=== PATIENT | male | born 1955 | race Caucasian/White ===

== ENCOUNTER 2019-12-20 05:00 | Emergency (ER) | payer SELFPAY ==
[2019-12-20] MEDS ORDERED: NORMAL SALINE 1000 ML 1,000 ML IV ONE ×2 (05:19→06:06)
[2019-12-20] MEDS ORDERED: DIPH/PERTUSS(ACELL)/TETANUS VAC/PF 0.5 ML SYR (>=10YO) IM ONE (05:21)
[2019-12-20 05:40] LABS: ABSOLUTE LYMPHOCYTES (AUTO) 0.8 10^3/uL (0.5-4.7); ABSOLUTE MONOCYTES (AUTO) 0.3 10^3/uL (0.1-1.4); ABSOLUTE NEUT (AUTO) 1.8 10^3/uL (1.7-8.2); BASOPHILS % (AUTO) 0.7 % (0-2); EOSINOPHILS % (AUTO) 1.3 % (0-6); HEMOGLOBIN 12.9 g/dL (13.5-17.0); LYMPHOCYTES % (AUTO) 26.1 % (13-45); MEAN CORPUSCULAR HEMOGLOBIN 32.8 pg (27.0-33.4); MEAN CORPUSCULAR HGB CONC 34.9 g/dL (32.0-36.0); MEAN CORPUSCULAR VOLUME 94 fl (80-97); MONOCYTES % (AUTO) 10.4 % (3-13); RED BLOOD COUNT 3.94 10^6/uL (4.35-5.55); RED CELL DISTRIBUTION WIDTH 14.5 % (11.5-14.0); SEGMENTED NEUTROPHILS % (AUTO) 61.5 % (42-78); TOTAL CELLS COUNTED % (AUTO) 100 %; WHITE BLOOD COUNT 2.9 10^3/uL (4.0-10.5)
--- NOTE | 2019-12-20 05:41 | ER Document Report ---
ED Medical Screen (RME) - General TRAVEL OUTSIDE OF THE [place] IN LAST 30 DAYS: No - Related Data Smoking: Non-smoker Frequency of alcohol use: None Drug Abuse: None <AMAIRANI HOPKINS - Last Filed: 12/20/19 05:36> - General Mode of Arrival: Medic Information source: Patient <GREGORY VALENCIA - Last Filed: 12/20/19 09:17> - General Chief Complaint: Fall Stated Complaint: FALL,HEAD INJURY - [facility] Notes: 12/20/19 05:36 Patient is a 64-year-old male who presents to the emergency department for evaluation after a syncopal episode. He states he was laying down, got up suddenly to talk to someone, and had a syncopal episode. He did strike his head. He was evidently unconscious for about 10 seconds. No seizure-like activity. The patient does not really remember falling. He has pain in the back of his head that he rates a 3 out of 5. He is unsure of his last tetanus shot. (AMAIRANI HOPKINS) 12/20/19 08:03 Patient's pain is constant. It is a mild throbbing pain. Nothing makes it b [place] or worse. It does not radiate. (GREGORY VALENCIA) - Related Data Allergies/Adverse Reactions: Penicillins Allergy (Verified 12/20/19 05:10) zolpidem [From Ambien] Allergy (Verified 12/20/19 05:10) Past Medical History - General Information source: Patient - Social History Drug Abuse: None Psychiatric Medical History: Reports: Hx Bipolar Disorder Past Surgical History: Reports: Hx Neurologic Surgery <AMAIRANI HOPKINS - Last Filed: 12/20/19 05:36> - General Information source: Patient - Social History Cigarette use (# per day): No - Says he used to smoke many years ago but does not currently smoke Frequency of alcohol use: None <GREGORY VALENCIA - Last Filed: 12/20/19 09:17> - Medical History Notes: History of traumatic brain injury (AMAIRANI HOPKINS) Review of Systems - Review of Systems Constitutional: denies: Chills, Fever Cardiovascular: denies: Chest pain, Palpitations Respiratory: denies: Cough, Short of breath -: Yes All other systems reviewed and negative <GREGORY VALENCIA - Last Filed: 12/20/19 09:17> Physical Exam <AMAIRANI HOPKINS - Last Filed: 12/20/19 05:36> - Vital signs Interpretation: Normal, Other - Patient has positive orthostasis - General General appearance: Appears well, Alert - HEENT Head: Normocephalic, Other - Patient has an occipital abrasion/hematoma that is mildly tender to palpation. No active bleeding. Eyes: Normal Pupils: PERRL Mucous membranes: Moist - Respiratory Respiratory status: No respiratory distress Chest status: Nontender Breath sounds: Normal Chest palpation: Normal - Cardiovascular Rhythm: Regular Heart sounds: Normal auscultation Murmur: No - Abdominal Inspection: Normal Distension: No distension Bowel sounds: Normal Tenderness: Nontender Organomegaly: No organomegaly - Back Back: Normal, Nontender - Extremities General upper extremity: Normal inspection, Nontender, Normal color, Normal ROM, Normal temperature General lower extremity: Normal inspection, Nontender, Normal color, Normal ROM, Normal temperature, Normal weight bearing. No: Aniceto's sign - Neurological Neuro grossly intact: Yes Cognition: Normal Orientation: AAOx4 [place] Coma Scale Eye Opening: Spontaneous [place] Coma Scale Verbal: Oriented [place] Coma Scale Motor: Obeys Commands [place] Coma Scale Total: 15 Speech: Normal Motor strength normal: LUE, RUE, LLE, RLE Sensory: Normal - Psychological Associated symptoms: Normal affect, Normal mood - Skin Skin Temperature: Warm Skin Moisture: Dry Skin Color: Normal <GREGORY VALENCIA - Last Filed: 12/20/19 09:17> - Vital signs Vitals: Pulse Ox 100 12/20/19 05:02 - Notes Notes: This is a 64-year-old male who appears his stated age in no acute distress. Head is normocephalic. He has a 4 x 4 centimeter area of abrasion on the parieto-occipital scalp without active bleeding or clear foreign body. Examination of the cervical spine is no midline tenderness or step-off, no paraspinal musculature tenderness appreciated. Patient is awake and alert, cooperative examiner. Moves all 4 extremity spontaneously. I have greeted and performed a rapid initial assessment of this patient. A comprehensive ED assessment and evaluation of the patient, analysis of test results and completion of medical decision making process will be conducted by additional ED providers. (AMAIRANI HOPKINS) Course - Laboratory Result Diagrams: 12/20/19 05:22 12/20/19 05:22 <AMAIRANI HOPKINS - Last Filed: 12/20/19 05:36> - Laboratory Result Diagrams: 12/20/19 05:22 12/20/19 05:22 - Diagnostic Test Radiology reviewed: Image reviewed, Reports reviewed - EKG Interpretation by Me EKG shows normal: Sinus rhythm Rate: Bradycardia - 56 Rhythm: NSR [place]/QRS: No: Right axis deviation, Left axis deviation <GREGORY VALENCIA - Last Filed: 12/20/19 09:17> - Re-evaluation Re-evalutation: 12/20/19 09:14 Patient had an episode of syncope this morning. CT is unremarkable he has a unremarkable neurological exam. He states he feels better now. He has ambulated about the ED without problem or symptom. His orthostatics are now normal. Patient appears much better after 2 L of fluid. I believe dehydration was the main problem patient had this morning. (GREGORY VALENCIA) - Vital Signs Vital signs: Temp Pulse Resp BP Pulse Ox 98.0 F 52 L 11 L 133/78 H 99 12/20/19 05:15 12/20/19 09:03 12/20/19 05:49 12/20/19 09:03 12/20/19 05:49 - Laboratory Laboratory results interpreted by me: 12/20/19 12/20/19 05:22 05:22 WBC 2.9 L RBC 3.94 L Hgb 12.9 L Hct 37.0 L RDW 14.5 H Plt Count 61 L AST 96 H ALT 84 H Total Protein 6.2 L Albumin 3.4 L Doctor's Discharge <AMAIRANI HOPKINS - Last Filed: 12/20/19 05:36> <GREGORY VALENCIA - Last Filed: 12/20/19 09:17> - Discharge Clinical Impression: Syncope and collapse, Thrombocytopenia Closed head injury Qualifiers: Encounter type: initial encounter Qualified Code(s): S09.90XA - Unspecified injury of head, initial encounter Hematoma of occipital surface of head Qualifiers: Encounter type: initial encounter Qualified Code(s): S00.83XA - Contusion of other part of head, initial encounter Leukopenia Qualifiers: Leukopenia type: unspecified Qualified Code(s): D72.819 - Decreased white blood cell count, unspecified Condition: Stable Disposition: HOME, SELF-CARE Instructions: Head Injury Precautions ([facility]), Syncopal Episode ([facility]) Additional Instructions: Please have a repeat CBC in two to three days Referrals: [facility] [Provider Group] - Follow up in 3-5 days
[2019-12-20 05:55] LABS: ALBUMIN 3.4 g/dL (3.5-5.0); ALKALINE PHOSPHATASE 83 U/L (38-126); ASPARTATE AMINO TRANSFERASE 96 U/L (17-59); BILIRUBIN,TOTAL 0.4 mg/dL (0.2-1.3); BLOOD UREA NITROGEN 16 mg/dL (7-20); CALCIUM 9.2 mg/dL (8.4-10.2); CHLORIDE 103 mmol/L (98-107); GLUCOSE 94 mg/dL (75-110); POTASSIUM 4.5 mmol/L (3.6-5.0); TOTAL PROTEIN 6.2 g/dL (6.3-8.2)
[2019-12-20 05:59] LABS: PLATELET COUNT 61 10^3/uL (150-450)
[2019-12-20 06:15] LABS: ANION GAP 6 (5-19); CARBON DIOXIDE 29 mmol/L (22-30)
--- NOTE | 2019-12-20 06:54 | RADIOLOGY REPORT (SQ) ---
EXAM DESCRIPTION: CT HEAD WITHOUT IV CONTRAST COMPLETED DATE/TME: 12/20/2019 05:34 CLINICAL HISTORY: head injury, syncope COMPARISON: None available TECHNIQUE: Axial CT of the head obtained from the skull apex to the skull base without contrast. FINDINGS: No acute intracranial hemorrhage identified. No mass, mass effect, shift of the midline, abnormal extra-axial fluid collection or CT evidence of acute ischemic change identified. The ventricular system and sulcal spaces are mildly enlarged compatible with mild cerebral atrophy. Scattered areas of hypodensity throughout the supratentorial white matter are nonspecific and may be related to chronic small vessel ischemic change. Left temporal encephalomalacia with ex vacuo dilatation of the left lateral ventricle compatible with remote ischemic change. The visualized paranasal sinuses and the mastoids are clear. No skull fracture identified. Visualized orbits and globes are unremarkable. Atherosclerotic calcification of the intracranial internal carotid arteries. IMPRESSION: 1. No acute intracranial abnormality by CT criteria. This exam was performed according to our departmental dose-optimization program, which includes automated exposure control, adjustment of the mA and/or kV according to patient size and/or use of iterative reconstruction technique.
--- NOTE | 2019-12-20 07:35 | EKG REPORT ---
SEVERITY:- ABNORMAL ECG - SINUS RHYTHM CONSIDER OLD ANTERIOR CA : Confirmed by: Carlitos Flynn MD 20-Dec-2019 07:35:16
[2019-12-20 09:24] LABS: APPEARANCE,URINE CLEAR; BILIRUBIN,URINE NEGATIVE (NEGATIVE); COLOR,URINE STRAW; GLUCOSE, URINE NEGATIVE (NEGATIVE); KETONES,URINE NEGATIVE (NEGATIVE); LEUKOCYTE ESTERASE,URINE NEGATIVE (NEGATIVE); NITRITE,URINE NEGATIVE (NEGATIVE); PROTEIN,URINE NEGATIVE (NEGATIVE); URINE SPECIFIC GRAVITY 1.005; UROBILINOGEN,URINE NEGATIVE mg/dL (<2.0)
[2019-12-20 09:49] VITALS: BP 124/60
== END 2019-12-20 09:48 | disposition home or self-care (01) ==
LOC: ER 05:00
DX: S00.83XA Contusion of other part of head, initial encounter (principal); S09.90XA Unspecified injury of head, initial encounter; R55 Syncope and collapse; D69.6 Thrombocytopenia, unspecified; D72.819 Decreased white blood cell count, unspecified; W19.XXXA Unspecified fall, initial encounter; Z88.0 Allergy status to penicillin; Z23 Encounter for immunization
CPT/HCPCS: 93005; 99284; 96360; 96361; 90471; 36415; 83735; 85025; 80053; 81001; 70450; 90715; 93010; J7030